=== PATIENT | female | born 2000 | race African-American/Black ===

== ENCOUNTER 2019-12-17 21:06 | Emergency (ER) | payer SELFPAY ==
[2019-12-17 21:24] LABS: Pregnancy Test - Urine (BHCG) POSITIVE (Negative); Pregu Control Background? CLEAR/WHITE (CLR/WHITE); Pregu Control Bar Appear? YES (CONTROL BAR); Specific Gravity 1.014 (1.002-1.036)
[2019-12-17 21:28] LABS: Bilirubin Negative (Negative); Blood, Urine Negative (Negative); Clarity Turbid (Clear); Glucose, Urine (Dipstick) Normal (Negative); Ketone, Urine Negative (Negative); Leukocyte 500 Leu/uL (Negative); Nitrite Negative (Negative); Protein, Urine (Dipstick) Negative (Neg-Trace); RBC/HPF None Seen HPF (0-3); Specific Gravity, Urine 1.014 (1.002-1.036); Urobilinogen Normal mg/dL (Less than 2); pH, Urine 7.5 (5.0-9.0)
[2019-12-17 21:31] LABS: Bacteria/HPF Rare-Few HPF (None Seen)
[2019-12-17 21:42] LABS: #Basophils 0.1 thou/uL (0.0-0.2); #Eosinphils 0.2 thou/uL (0.0-0.7); #Lymphocytes 2.3 thou/uL (1.20-3.40); #Monocytes 0.6 thou/uL (0.11-0.59); #Neutrophils 4.1 thou/uL (1.40-6.50); %Basophils 1.1 % (0.0-1.0); %Eosinophils 2.3 % (0.0-10.0); %Lymphocytes 32.3 % (28.0-48.0); %Neutrophils 56.3 % (31.0-61.0); Hemoglobin 11.8 g/dL (12.0-16.0); Mean Corpuscular HGB CONC 32.6 g/dL (32.0-36.0); Mean Corpuscular Hemoglobin 29.1 pg (25.0-35.0); Mean Corpuscular Volume 89.4 fL (78.0-98.0); Platelet Count 210 thou/uL (130-400); RBC Distribution Width 11.6 % (11.5-14.5); Red Blood Cell (RBC) Count 4.05 mill/uL (4.00-5.20); White Blood Cell (WBC) Count 7.2 thou/uL (4.8-10.8)
[2019-12-17 22:04] LABS: ALT (SGPT) 10 U/L (8-55); AST (SGOT) 12 U/L (5-34); Albumin 4.1 g/dL (3.5-5.0); Alkaline Phosphatase 51 U/L (40-100); Anion Gap 11 mmol/L (10-20); BUN (Urea Nitrogen) 9 mg/dL (7.0-18.7); Bilirubin, Total 0.4 mg/dL (0.2-1.2); Calc. Creatinine Clearance 0 mL/min (70-130); Calcium 8.8 mg/dL (7.8-10.44); Carbon Dioxide 23 mmol/L (22-29); Chloride 104 mmol/L (98-107); Estimated GFR-MDRD Greater than 90; Globulin 2.8 g/dL (2.4-3.5); Glucose 84 mg/dL (70-105); Lipase 20 U/L (8-78); Potassium 3.6 mmol/L (3.5-5.1); Protein, Total 6.9 g/dL (6.0-8.3); Sodium 134 mmol/L (136-145)
--- NOTE | 2019-12-18 09:01 | ULT ---
TRANSABDOMINAL PELVIC ULTRASOUND WITH DOPPLER: DATE: 12/17/2019. PROVIDED CLINICAL HISTORY: Pelvic pain with positive beta HCG. FINDINGS: An intrauterine gestational sac is demonstrated containing a yolk sac and a pole. Mccaulley-rump l ength corresponds 5 week 6 day gestation. heart tones are not evident on this examination, whi ch may be on the basis of the early gestational age. The right and left ovaries appear sonographical ly unremarkable and demonstrate normal flow on color Doppler and spectral analysis. There is no evid ence for significant free pelvic fluid. IMPRESSION: Intrauterine gestational sac containing yolk sac and pole, the latter of which corresponds to a 5-week 6-day gestation. Followup is recommended. POS: DAYA
== END 2019-12-17 23:37 | disposition home or self-care (01) ==
LOC: ERS 21:06
DX: O20.0 Threatened abortion (principal); O23.11 Infections of bladder in pregnancy, first trimester; Z3A.01 Less than 8 weeks gestation of pregnancy
CPT/HCPCS: 36415; 76856; 80053; 81003; 81015; 81025; 83690; 84702; 85025; 86900; 86901; 93976

== ENCOUNTER 2020-03-09 13:59 | Emergency (ER) | payer OTHER, SELFPAY ==
[2020-03-09 15:19] LABS: Bilirubin Negative (Negative); Blood, Urine Negative (Negative); Clarity Turbid (Clear); Glucose, Urine (Dipstick) Normal (Negative); Ketone, Urine Negative (Negative); Leukocyte 250 Leu/uL (Negative); Nitrite Negative (Negative); Protein, Urine (Dipstick) Negative (Neg-Trace); RBC/HPF 0-3 HPF (0-3); Specific Gravity, Urine 1.018 (1.002-1.036); Urobilinogen Normal mg/dL (Less than 2); pH, Urine 7.5 (5.0-9.0)
[2020-03-09 15:27] LABS: Bacteria/HPF Rare-Few HPF (None Seen)
== END 2020-03-09 15:43 | disposition home or self-care (01) ==
LOC: ERS 13:59
DX: O23.42 Unspecified infection of urinary tract in pregnancy, second trimester (principal); B96.89 Other specified bacterial agents as the cause of diseases classified elsewhere; Z3A.17 17 weeks gestation of pregnancy
CPT/HCPCS: 81003; 81015; 87086

== ENCOUNTER 2021-08-19 02:27 | Emergency (ER) | payer OTHER | END 2021-08-19 03:15 | LOC: ERS 02:27 | DX: H10.213 Acute toxic conjunctivitis, bilateral (principal); L25.3 Unspecified contact dermatitis due to other chemical products; F17.290 Nicotine dependence, other tobacco product, uncomplicated | CPT/HCPCS: 99283 ==

== ENCOUNTER 2022-12-01 20:36 | Emergency (ER) | payer MEDICAID, OTHER, SELFPAY ==
[2022-12-01 22:10] LABS: SARS-CoV-2 NAA Rapid Test Not Detected (NotDetected)
== END 2022-12-01 22:17 | disposition home or self-care (01) ==
LOC: ERS 20:36
DX: B34.9 Viral infection, unspecified (principal); Z20.822 Contact with and (suspected) exposure to COVID-19
CPT/HCPCS: 87081; 87430; 99284

== ENCOUNTER 2024-01-28 08:36 | Emergency (ER) | payer MEDICAID, OTHER ==
[2024-01-28 09:19] LABS: Bacteria/HPF None Seen HPF (None Seen); Bilirubin Negative (Negative); Blood, Urine Negative (Negative); CAUTI Indications for Culture Dysuria,urgency,freq; Clarity Clear (Clear); Glucose, Urine (Dipstick) Normal (Negative); Ketone, Urine Negative (Negative); Leukocyte Negative Leu/uL (Negative); Nitrite Negative (Negative); Protein, Urine (Dipstick) Negative (Neg-Trace); RBC/HPF 0-3 HPF (0-3); Specific Gravity, Urine 1.016 (1.002-1.036); Squamous Epithelial 0-3 HPF (0-3); Urobilinogen Normal mg/dL (Less than 2); WBC/HPF 0-3 HPF (0-3); pH, Urine 6.5 (5.0-9.0)
[2024-01-28 09:27] LABS: Pregnancy Test - Urine (BHCG) Negative (Negative); Pregu Control Background? CLEAR/WHITE (CLR/WHITE); Pregu Control Bar Appear? YES (CONTROL BAR); Specific Gravity 1.016 (1.002-1.036)
[2024-01-28 09:28] LABS: Urine Culture Reflex No No
[2024-01-28] MEDS ORDERED: cefTRIAXone (ROCEPHIN) 500 MG VIAL ONE (09:59)
[2024-01-28] MEDS ORDERED: Lidocaine 1% PF 5 ML VIAL ONE (09:59)
[2024-01-28 13:51] LABS: GC by PCR, Vaginal Swab Not Detected (NotDetected)
== END 2024-01-28 13:32 | disposition home or self-care (01) ==
LOC: ERS 08:36
DX: N76.0 Acute vaginitis (principal)
CPT/HCPCS: 81001; 81025; 87480; 87510; 87591; 87660; 96372; 99283; J0696

== ENCOUNTER 2024-02-01 08:15 | Emergency (ER) | payer OTHER | END 2024-02-01 10:38 | disposition home or self-care (01) | LOC: ERS 08:15 | DX: B08.1 Molluscum contagiosum (principal) | CPT/HCPCS: 99282 ==